=== PATIENT | male | born 1960 | race Caucasian/White ===

== ENCOUNTER → 2020-03-14 | Outpatient (CLI) | payer MEDICARE, OTHER ==
[~2020-03-14] MED LIST: ALBUTEROL2.5 MG/3 M INH; ASPIRIN EC81 MG PO; ATORVASTATIN CA40 MG PO; GLIMEPIRIDE4 MG PO; IPRAT-ALBUT 0.5-3 ML NEB; JANUVIA100 MG PO; LEVAQUIN500 MG PO; LISINOPRIL-HCT1 EACH PO; MEDROL DOSEPAK 24 MG PO; METFORMIN HCL750 MG PO; NICOTINE PATCH1 EAC2 TD; NICOTINE PATCH1 EAC2 TOP; PREDNISONE 20 M20 MG PO; SYMBICORT 80-41 INHA INH; TRELEGY ELLIPT1 EACH INH; TYLENOL COLD &1 EACH PO; VENTOLIN HFA 66.7 GM INH; ZESTRIL5 MG PO
== END ==
LOC: HEART 5 10:19
DX: J44.9 Chronic obstructive pulmonary disease, unspecified (principal); R94.2 Abnormal results of pulmonary function studies; F17.210 Nicotine dependence, cigarettes, uncomplicated
CPT/HCPCS: 94010; 94729

== ENCOUNTER → 2020-03-14 | Outpatient (CLI) | payer OTHER | LOC: RT 12:31 | DX: R09.02 Hypoxemia (principal) | CPT/HCPCS: 36600; 82803 ==

== ENCOUNTER → 2020-03-28 | Outpatient (CLI) | payer OTHER | LOC: LBRF 16:47 | DX: R31.9 Hematuria, unspecified (principal) | CPT/HCPCS: 81001 ==

== ENCOUNTER 2020-08-15 10:19 | Observation (INO) | payer MEDICARE, OTHER ==
[~2020-08-15] VITALS: Ht 175.3 cm; Wt 103.9 kg
[~2020-08-15 10:19] MED LIST changes: -MEDROL DOSEPAK 24 MG PO; -NICOTINE PATCH1 EAC2 TOP; -TRELEGY ELLIPT1 EACH INH; -TYLENOL COLD &1 EACH PO; -ZESTRIL5 MG PO
[2020-08-15 10:45] LABS: HEMOGLOBIN 15.9 gm/dl (14.0-17.5); RED BLOOD COUNT 5.2 M/UL (4.20-5.50); WHITE BLOOD COUNT 11.4 K/UL (4.5-11.0)
[2020-08-15 11:04] LABS: BUN/CREATININE RATIO 17 (0-10)
[2020-08-15] MEDS ORDERED: TRELEGY ELLIPT1 EACH INH (13:52)
[2020-08-15] MEDS ORDERED: ZESTRIL5 MG PO (13:53)
[2020-08-15] MEDS ORDERED: TYLENOL COLD &1 EACH PO (14:11)
[2020-08-16 02:14] LABS: HEMOGLOBIN 14.2 gm/dl (14.0-17.5); RED BLOOD COUNT 4.7 M/UL (4.20-5.50); WHITE BLOOD COUNT 9.9 K/UL (4.5-11.0)
[2020-08-16 02:35] LABS: BUN/CREATININE RATIO 18 (0-10)
[2020-08-17 04:27] LABS: HEMOGLOBIN 14.1 gm/dl (14.0-17.5); RED BLOOD COUNT 4.69 M/UL (4.20-5.50)
[2020-08-17 04:34] LABS: WHITE BLOOD COUNT 20.2 K/UL (4.5-11.0)
[2020-08-17 04:50] LABS: BUN/CREATININE RATIO 28 (0-10)
[2020-08-17] MEDS ORDERED: IPRAT-ALBUT 0.5-3 ML NEB (11:29)
[2020-08-17] MEDS ORDERED: NICOTINE PATCH1 EAC2 TOP (11:29)
[2020-08-17] MEDS ORDERED: ASPIRIN EC81 MG PO (11:29)
[2020-08-17] MEDS ORDERED: TRELEGY ELLIPT1 EACH INH (11:29)
[2020-08-17] MEDS ORDERED: MEDROL DOSEPAK 24 MG PO (11:31)
--- NOTE | 2020-08-17 12:39 | NUR ---
INSTRUCTED PATIENT AND FAMILY MEDS ARE AT PHARMACY, TO BE PICKED UP. TAKE DUO NEBS ORDERED. DO NOT SMOKE WITH NICOTINE PATCHES. KEEP FOLLOW UP APPOINTMENT. VERBALIZED UNDERSTANDING. VIOLA VILLEDA R.N.
== END 2020-08-17 13:00 | disposition home or self-care (01) ==
LOC: ER1 10:19 → CDU 13:29 → MED SURG 4 13:29
PROVIDERS: Family Medicine; Physician Assistant; ADMIT Internal Medicine
DX: J44.1 Chronic obstructive pulmonary disease with (acute) exacerbation (principal); R07.9 Chest pain, unspecified; E11.9 Type 2 diabetes mellitus without complications; I10 Essential (primary) hypertension; E78.5 Hyperlipidemia, unspecified; J96.12 Chronic respiratory failure with hypercapnia; J96.11 Chronic respiratory failure with hypoxia; F17.210 Nicotine dependence, cigarettes, uncomplicated; E66.9 Obesity, unspecified; J60 Coalworker's pneumoconiosis
CPT/HCPCS: ECHO; 0240U; 36415; 36600; 71045; 78452; 80048; 80053; 82550; 82553; 82803; 82962; 83036; 83874; 84484; 85025; 93005; 93017; 93306; 94640; 94760; 96374; 96376; 99285; A9502; G0378; J2785; J2920; J2930; Q9967

== ENCOUNTER → 2021-01-02 | Outpatient (CLI) | payer MEDICARE, OTHER ==
[~2021-01-02] MED LIST changes: +MEDROL DOSEPAK 24 MG PO; +NICOTINE PATCH1 EAC2 TOP; +TRELEGY ELLIPT1 EACH INH; +TYLENOL COLD &1 EACH PO; +ZESTRIL5 MG PO
== END ==
LOC: HEART CORB 11:00
DX: I63.9 Cerebral infarction, unspecified (principal); I50.9 Heart failure, unspecified; I08.1 Rheumatic disorders of both mitral and tricuspid valves; I27.20 Pulmonary hypertension, unspecified
CPT/HCPCS: 93306

== ENCOUNTER → 2021-02-06 | Outpatient (CLI) | payer MEDICARE, OTHER | LOC: HEART CORB 09:30 | DX: I47.2 Ventricular tachycardia (principal); E11.9 Type 2 diabetes mellitus without complications; R06.00 Dyspnea, unspecified; I10 Essential (primary) hypertension; E78.5 Hyperlipidemia, unspecified; J43.2 Centrilobular emphysema; G47.33 Obstructive sleep apnea (adult) (pediatric); Z86.73 Personal history of transient ischemic attack (TIA), and cerebral infarction without residual deficits | CPT/HCPCS: 78452; A9502; J2785 ==

== ENCOUNTER 2021-07-24 14:47 | Inpatient (IN) | payer MEDICARE, OTHER ==
[~2021-07-24] VITALS: Ht 172.7 cm; Wt 104.3 kg
[2021-07-24 15:14] LABS: HEMOGLOBIN 14.8 gm/dl (14.0-17.5); RED BLOOD COUNT 5.04 M/UL (4.20-5.50); WHITE BLOOD COUNT 7.4 K/UL (4.5-11.0)
[2021-07-24 15:44] LABS: BUN/CREATININE RATIO 9 (0-10)
[2021-07-24] MEDS ORDERED: SERTRALINE HCL50 MG PO (18:38)
[2021-07-24] MEDS ORDERED: CLOPIDOGREL75 MG PO (18:39)
[2021-07-25 04:09] LABS: HEMOGLOBIN 14.4 gm/dl (14.0-17.5); RED BLOOD COUNT 5.09 M/UL (4.20-5.50)
[2021-07-25 04:10] LABS: WHITE BLOOD COUNT 9.6 K/UL (4.5-11.0)
[2021-07-25 04:28] LABS: BUN/CREATININE RATIO 15 (0-10)
[2021-07-26 02:26] LABS: HEMOGLOBIN 14.5 gm/dl (14.0-17.5); RED BLOOD COUNT 4.98 M/UL (4.20-5.50)
[2021-07-26 02:29] LABS: WHITE BLOOD COUNT 15.4 K/UL (4.5-11.0)
[2021-07-26 02:51] LABS: BUN/CREATININE RATIO 19 (0-10)
[2021-07-27 03:42] LABS: HEMOGLOBIN 13.6 gm/dl (14.0-17.5); RED BLOOD COUNT 4.68 M/UL (4.20-5.50); WHITE BLOOD COUNT 16.6 K/UL (4.5-11.0)
[2021-07-27 04:11] LABS: BUN/CREATININE RATIO 27 (0-10)
[2021-07-27] MEDS ORDERED: CEFTIN (09:00)
[2021-07-27] MEDS ORDERED: MEDROL4 MG PO (09:00)
[2021-07-27] MEDS ORDERED: [UNRECOGNIZED DRUG - OTHER] (09:00)
[2021-07-27] MEDS ORDERED: CEFUROXIME500 MG PO (11:57)
[2021-07-27] MEDS ORDERED: TRELEGY ELLIPT1 EACH INH (11:58)
== END 2021-07-27 15:18 | disposition home or self-care (01) | DRG 193 ==
LOC: ER1 14:47 → CDU 17:56 → M/S 07-25 12:58
PROVIDERS: Internal Medicine; ADMIT Internal Medicine
DX: J18.9 Pneumonia, unspecified organism (principal); J96.21 Acute and chronic respiratory failure with hypoxia; J44.0 Chronic obstructive pulmonary disease with (acute) lower respiratory infection; J44.1 Chronic obstructive pulmonary disease with (acute) exacerbation; Z20.822 Contact with and (suspected) exposure to COVID-19; E78.5 Hyperlipidemia, unspecified; E11.9 Type 2 diabetes mellitus without complications; F17.210 Nicotine dependence, cigarettes, uncomplicated; K59.00 Constipation, unspecified; J60 Coalworker's pneumoconiosis; Z79.01 Long term (current) use of anticoagulants; Z79.82 Long term (current) use of aspirin; Z99.81 Dependence on supplemental oxygen; Z82.49 Family history of ischemic heart disease and other diseases of the circulatory system; Z83.3 Family history of diabetes mellitus; Z80.1 Family history of malignant neoplasm of trachea, bronchus and lung; Z79.4 Long term (current) use of insulin
CPT/HCPCS: 36415; 36600; 71045; 80048; 80053; 81001; 82550; 82553; 82803; 82962; 83036; 83605; 83735; 84484; 85025; 85027; 87040; 87070; 87205; 93005; 94640; 94660; 94664; 94760; 96372; 96374; 96375; 96376; 99285; G0378; J0456; J0696; J1650; J2920; J2930; J7030

== ENCOUNTER → 2021-08-08 | Outpatient (CLI) | payer MEDICARE, OTHER ==
[~2021-08-08] MED LIST changes: +CEFTIN; +CEFUROXIME500 MG PO; +CLOPIDOGREL75 MG PO; +MEDROL4 MG PO; +SERTRALINE HCL50 MG PO; +[UNRECOGNIZED DRUG - OTHER]
== END ==
LOC: KOH-I 08:00
DX: R91.1 Solitary pulmonary nodule (principal); R59.1 Generalized enlarged lymph nodes
CPT/HCPCS: 71250

== ENCOUNTER → 2021-08-10 | Outpatient (CLI) | payer MEDICARE, OTHER ==
[~2021-08-10] MED LIST changes: +AMLODIPINE BESY10 MG PO; +NOVOLOG
== END ==
LOC: EXRD 14:17
DX: R06.02 Shortness of breath (principal)
CPT/HCPCS: 94060; 94729

== ENCOUNTER → 2021-08-15 | Outpatient (CLI) | payer MEDICARE, OTHER ==
[2021-08-15 14:19] LABS: BUN/CREATININE RATIO 18 (0-10)
== END ==
LOC: OPSV2 12:30
PROVIDERS: Anesthesiology
DX: Z01.818 Encounter for other preprocedural examination (principal); Z86.73 Personal history of transient ischemic attack (TIA), and cerebral infarction without residual deficits; E11.9 Type 2 diabetes mellitus without complications; J44.9 Chronic obstructive pulmonary disease, unspecified
CPT/HCPCS: 80048; 93005

== ENCOUNTER → 2021-08-22 | Day surgery (SDC) | payer MEDICARE, OTHER | END | disposition home or self-care (01) | LOC: OR 07:12 | DX: C96.9 Malignant neoplasm of lymphoid, hematopoietic and related tissue, unspecified (principal); R91.8 Other nonspecific abnormal finding of lung field; I11.0 Hypertensive heart disease with heart failure; I50.9 Heart failure, unspecified; J44.9 Chronic obstructive pulmonary disease, unspecified; G47.30 Sleep apnea, unspecified; J96.12 Chronic respiratory failure with hypercapnia; J96.11 Chronic respiratory failure with hypoxia; R91.1 Solitary pulmonary nodule; E78.00 Pure hypercholesterolemia, unspecified; Z86.73 Personal history of transient ischemic attack (TIA), and cerebral infarction without residual deficits; Z79.02 Long term (current) use of antithrombotics/antiplatelets; Z72.0 Tobacco use | CPT/HCPCS: 82962; J0171; J1100; J2405; J2704; J3010 ==

== ENCOUNTER → 2021-08-29 | Outpatient (CLI) | payer MEDICARE, OTHER | LOC: EMI 08-28 10:00 | DX: Z12.89 Encounter for screening for malignant neoplasm of other sites (principal); C34.32 Malignant neoplasm of lower lobe, left bronchus or lung | CPT/HCPCS: 70553; A9577 ==

== ENCOUNTER → 2021-09-08 | Outpatient (CLI) | payer MEDICARE, OTHER ==
[~2021-09-08] MED LIST changes: +HYDROCODON-ACE1 EAC6 PO; +METOPROLOL SUCC25 MG PO
== END ==
LOC: EMI 08:34
DX: C34.32 Malignant neoplasm of lower lobe, left bronchus or lung (principal); R93.7 Abnormal findings on diagnostic imaging of other parts of musculoskeletal system; R59.0 Localized enlarged lymph nodes
CPT/HCPCS: 72157; A9577

== ENCOUNTER → 2021-09-08 | Day surgery (SDC) | payer MEDICARE, OTHER | END | disposition home or self-care (01) | LOC: OR 08:10 | DX: C34.90 Malignant neoplasm of unspecified part of unspecified bronchus or lung (principal); I10 Essential (primary) hypertension; J43.2 Centrilobular emphysema; J96.11 Chronic respiratory failure with hypoxia; J96.12 Chronic respiratory failure with hypercapnia; E78.5 Hyperlipidemia, unspecified; G47.33 Obstructive sleep apnea (adult) (pediatric); E11.9 Type 2 diabetes mellitus without complications; Z79.82 Long term (current) use of aspirin; Z79.02 Long term (current) use of antithrombotics/antiplatelets; Z79.84 Long term (current) use of oral hypoglycemic drugs; Z79.899 Other long term (current) drug therapy | CPT/HCPCS: 71045; 72157; 77001; 82962; A9577; C1769; C1788; J0690; J1100; J1642; J2405; J2704; J3010; J7040 ==

== ENCOUNTER 2021-10-29 10:37 | Inpatient (IN) | payer MEDICARE, OTHER ==
[~2021-10-29] VITALS: Ht 175.3 cm; Wt 83.0 kg
[~2021-10-29 10:37] MED LIST changes: -AMLODIPINE BESY10 MG PO; +AMLODIPINE BESYL5 MG PO
[2021-10-29 12:51] LABS: HEMOGLOBIN 8.9 gm/dl (14.0-17.5); RED BLOOD COUNT 2.96 M/UL (4.20-5.50); WHITE BLOOD COUNT 6.3 K/UL (4.5-11.0)
[2021-10-29 13:36] LABS: BUN/CREATININE RATIO 15 (0-10)
[2021-10-29] MEDS ORDERED: LORAZEPAM0.5 MG PO (15:42)
[2021-10-29] MEDS ORDERED: MORPHINE SULFAT15 M2 PO (15:51)
[2021-10-29] MEDS ORDERED: LIDOCAINE-PRILOC5 GM TOP (15:55)
[2021-10-29] MEDS ORDERED: ONDANSETRON ODT4 MG PO (15:57)
[2021-10-29] MEDS ORDERED: COMPAZINE10 MG PO (15:58)
[2021-10-30 05:42] LABS: HEMOGLOBIN 7.2 gm/dl (14.0-17.5); WHITE BLOOD COUNT 5.8 K/UL (4.5-11.0)
[2021-10-30 05:45] LABS: RED BLOOD COUNT 2.37 M/UL (4.20-5.50)
[2021-10-30 07:59] LABS: BUN/CREATININE RATIO 16 (0-10)
[2021-10-30 14:51] LABS: BUN/CREATININE RATIO 16 (0-10)
[2021-10-30 18:59] LABS: BUN/CREATININE RATIO 15 (0-10)
--- NOTE | 2021-10-30 19:13 | NUR ---
NOTIFIED MD OF CRITICAL CALCIUM LEVEL OF LESS THAN 5. RECIEVED NO NEW ORDERS. WILL CONTINUE TO MONITOR.
[2021-10-31 15:33] LABS: HEMOGLOBIN 7.1 gm/dl (14.0-17.5); RED BLOOD COUNT 2.47 M/UL (4.20-5.50); WHITE BLOOD COUNT 5.6 K/UL (4.5-11.0)
[2021-11-01 05:45] LABS: HEMOGLOBIN 8.5 gm/dl (14.0-17.5); WHITE BLOOD COUNT 5.5 K/UL (4.5-11.0)
[2021-11-01 05:48] LABS: RED BLOOD COUNT 2.82 M/UL (4.20-5.50)
[2021-11-02 01:16] LABS: HEMOGLOBIN 8.6 gm/dl (14.0-17.5); RED BLOOD COUNT 2.83 M/UL (4.20-5.50); WHITE BLOOD COUNT 4.3 K/UL (4.5-11.0)
[2021-11-03 07:31] LABS: HEMOGLOBIN 8.1 gm/dl (14.0-17.5); RED BLOOD COUNT 2.67 M/UL (4.20-5.50); WHITE BLOOD COUNT 3.8 K/UL (4.5-11.0)
[2021-11-04 13:15] LABS: HEMOGLOBIN 8.1 gm/dl (14.0-17.5); RED BLOOD COUNT 2.7 M/UL (4.20-5.50); WHITE BLOOD COUNT 3.7 K/UL (4.5-11.0)
[2021-11-04] MEDS ORDERED: PHENERGAN 25 MG25 M1 PO (15:40)
[2021-11-04] MEDS ORDERED: MAGNESIUM OXID400 M1 PO (16:11)
[2021-11-04] MEDS ORDERED: K-TAB ER20 MEQ PO ×2 (16:11→17:00)
== END 2021-11-04 17:45 | disposition home health service (06) | DRG 682 ==
LOC: ER1 10:37 → MED SURG 4 14:18 → CDU 14:18 → MED SURG 4 20:09
PROVIDERS: Internal Medicine; Nurse Practitioner; Physician Assistant; ADMIT Internal Medicine
PROC: 30233N1 Transfusion of Nonautologous Red Blood Cells into Peripheral Vein, Percutaneous Approach (ICD-10-PCS; principal; 2021-10-31)
DX: N17.9 Acute kidney failure, unspecified (principal); D61.810 Antineoplastic chemotherapy induced pancytopenia; C34.90 Malignant neoplasm of unspecified part of unspecified bronchus or lung; C79.51 Secondary malignant neoplasm of bone; J96.11 Chronic respiratory failure with hypoxia; J96.12 Chronic respiratory failure with hypercapnia; E86.0 Dehydration; I95.1 Orthostatic hypotension; E83.51 Hypocalcemia; F17.210 Nicotine dependence, cigarettes, uncomplicated; G89.3 Neoplasm related pain (acute) (chronic); E87.6 Hypokalemia; T45.1X5A Adverse effect of antineoplastic and immunosuppressive drugs, initial encounter; E83.42 Hypomagnesemia; E11.9 Type 2 diabetes mellitus without complications; J44.9 Chronic obstructive pulmonary disease, unspecified; R11.2 Nausea with vomiting, unspecified; D64.81 Anemia due to antineoplastic chemotherapy; W18.39XA Other fall on same level, initial encounter; E78.5 Hyperlipidemia, unspecified; Z86.73 Personal history of transient ischemic attack (TIA), and cerebral infarction without residual deficits; Z82.49 Family history of ischemic heart disease and other diseases of the circulatory system; Z83.3 Family history of diabetes mellitus; Z80.1 Family history of malignant neoplasm of trachea, bronchus and lung
CPT/HCPCS: 36415; 36430; 70450; 70551; 71045; 72125; 80048; 80053; 81001; 82310; 82330; 82550; 82553; 82652; 82962; 83605; 83735; 83874; 83970; 84100; 84132; 84484; 85025; 85027; 85610; 85730; 86850; 86900; 86901; 87040; 87086; 93005; 93880; 94640; 94760; 96374; 96375; 96376; 97161; 97165; 99285; C9113; G0378; J0610; J0780; J2270; J2405; J2550; J3475; J3480; J7030; P9016